=== PATIENT | female | born 1960 | race Caucasian/White ===

== ENCOUNTER 2016-07-31 21:37 | Emergency (ER) | payer MEDICAID ==
[~2016-07-31] VITALS: Ht 167.6 cm; Wt 69.9 kg
[2016-08-01 00:23] VITALS: BP 164/97
[2016-08-01] MEDS ORDERED: HYDROcodone-ACET 10/325MG TAB PO ONE ×2 (01:15)
== END 2016-08-01 01:21 | disposition home or self-care (01) ==
LOC: ER 21:37
DX: G89.29 Other chronic pain (principal); M54.5 Low back pain; M54.16 Radiculopathy, lumbar region; Z88.1 Allergy status to other antibiotic agents; F17.210 Nicotine dependence, cigarettes, uncomplicated